=== PATIENT | female | born 1965 | race Caucasian/White ===

== ENCOUNTER → 2018-07-27 | Outpatient (CLI) | payer OTHER ==
[2018-07-28 14:07] LABS: HPV 16 Negative (Negative); HPV 18 Negative (Negative); HPV OTHER HR TYPES Negative (Negative)
== END | disposition home or self-care (01) ==
LOC: LAB 09:29 → LAB SHORT 09:29
PROVIDERS: Nurse Practitioner Obstetrics & Gynecology
DX: Z01.419 Encounter for gynecological examination (general) (routine) without abnormal findings (principal)
CPT/HCPCS: 87624; G0123

== ENCOUNTER 2018-09-13 07:15 | Day surgery (SDC) | payer OTHER ==
[~2018-09-13] VITALS: Ht 157.5 cm; Wt 66.5 kg
[2018-09-13] MEDS ORDERED: Phentermine HCl15 MG (07:46)
== END 2018-09-13 09:15 | disposition home or self-care (01) ==
LOC: ORSCSDS 07:15
PROVIDERS: Internal Medicine Gastroenterology
PROC: 0DBE8ZX Excision of Large Intestine, Via Natural or Artificial Opening Endoscopic, Diagnostic (ICD-10-PCS; principal; 2018-09-13 08:30)
PROC: 0DBH8ZX Excision of Cecum, Via Natural or Artificial Opening Endoscopic, Diagnostic (ICD-10-PCS; principal; 2018-09-13 08:30)
DX: Z12.11 Encounter for screening for malignant neoplasm of colon (principal); Z86.19 Personal history of other infectious and parasitic diseases; K52.9 Noninfective gastroenteritis and colitis, unspecified; K64.8 Other hemorrhoids
CPT/HCPCS: 88305; J2405; J2704; J7120

== ENCOUNTER → 2024-06-17 | Outpatient (CLI) | payer SELFPAY ==
[~2024-06-17] MED LIST: CEFP200 PO; DOXY100 PO; Metformin HCl750 MG PO; Phentermine HCl15 MG; VISBIOME 112.51 EACH PO
== END ==
LOC: LAB 08:37 → LAB SHORT 08:37
DX: N39.0 Urinary tract infection, site not specified (principal)
CPT/HCPCS: 87077; 87086; 87186

== ENCOUNTER 2024-06-19 10:28 | Inpatient (IN) | payer BC ==
[~2024-06-19] VITALS: Ht 160 cm; Wt 67.1 kg
[~2024-06-19 10:28] MED LIST changes: -CEFP200 PO; -DOXY100 PO; -Metformin HCl750 MG PO; -VISBIOME 112.51 EACH PO
[2024-06-19 11:56] LABS: Hemoglobin 16.7 g/dL (11.5-16.0); Mean Corpuscular HGB 28.6 pg (26.0-34.0); Mean Corpuscular HGB Conc 34.8 g/dL (31.5-36.5); Mean Corpuscular Volume 82 fL (80-100); RDW Coefficient Variation 13.8 % (11.7-14.2); RDW Standard Deviation 41.3 fL (35.1-46.3); Red Blood Cell Count 5.83 M/mm3 (3.80-5.20); White Blood Cell Count 20.65 K/mm3 (4.00-11.30)
[2024-06-19 12:03] LABS: Bun/Creatinine Ratio 30.9 (12.0-20.0); Calcium, Blood 8.4 mg/dL (8.5-10.1); Creatinine, Blood 1.23 mg/dL (0.40-1.00); Potassium, Blood 4.6 mmol/L (3.5-5.5)
[2024-06-19 12:13] LABS: Platelet Count 35 K/mm3 (150-400)
[2024-06-19 12:17] LABS: BAND PERCENT MAN 10 % (0-8); BASOPHILS PERCENT MAN 0 % (0-2); EOSINOPHILS PERCENT MAN 0 % (0-6); LYMPHOCYTES % ATYPICAL MANUAL 1 % (0-0); LYMPHOCYTES ABSOLUTE MAN 3.71 K/mm3 (0.84-5.20); LYMPHOCYTES PERCENT MAN 17 % (21-46); METAMYELOCYTE ABSOLUTE MAN 0.61 K/mm3 (0.00-0.00); METAMYELOCYTE PERCENT MAN 3 % (0-0); MONOCYTES ABSOLUTE MAN 1.23 K/mm3 (0.16-1.47); MONOCYTES PERCENT MAN 6 % (4-13); MYELOCYTE ABSOLUTE MAN 0.41 K/mm3 (0.00-0.00); MYELOCYTE PERCENT MAN 2 % (0-0); NEUTROPHILS ABSOLUTE MAN 14.04 K/mm3 (1.96-9.15); PLASMA CELL ABSOLUTE MAN 0.61 K/mm3 (0.00-0.00); PLASMA CELLS PERCENT MAN 3 % (0-0); SEG NEUTROPHILS PERCENT MAN 58 % (41-73); TOTAL CELLS COUNTED 100
[2024-06-19] MEDS ORDERED: CefTRIAXone Sodium 1,000 MG in NS 100 ML IV ONE (15:15)
[2024-06-19] MEDS ORDERED: Metformin HCl750 MG PO (16:34)
[2024-06-19] MEDS ORDERED: CEFP200 PO (16:35)
[2024-06-19] MEDS ORDERED: Lactated Ringer's 1,000 ML IV SCH (17:15)
[2024-06-19] MEDS ORDERED: Azithromycin 500 MG in NS 250 ML IV SCH (17:20)
[2024-06-19] MEDS ORDERED: Acetaminophen 325 MG TABLET PO PRN (17:45)
[2024-06-19] MEDS ORDERED: Ondansetron HCl 2 MG / ML 2ML Vial IV ONE (18:05)
[2024-06-19 19:56] LABS: Source, Urine Clean Catch
[2024-06-19 20:07] LABS: Appearance, Urine Hazy (Clear); Bilirubin, Urine Neg (Neg); Blood, Urine 2+ (Neg); Color, Urine Yellow (P-Yellow); Glucose Qualitative, Urine Neg (Neg); Ketones, Urine Neg (Neg); Leukocyte Esterase, Urine Neg (Neg); Nitrite, Urine Neg (Neg); Protein, Urine 3+ (Neg); Urobilinogen, Urine NORM (Normal)
[2024-06-19 20:17] LABS: Bacteria Few /hpf; Mucus Light (0-Heavy); Red Blood Cells, Urine 0-2 /hpf (0-2); Squamous Epithelial Cells Mod /hpf (Few); White Blood Cells, Urine 0-2 /hpf (0-5)
[2024-06-19 20:18] LABS: Amorphous Heavy (0-Heavy); Granular Casts 25-50 /lpf (0)
[2024-06-19 20:18] LABS: Bun/Creatinine Ratio 32.1 (12.0-20.0); Calcium, Blood 7.7 mg/dL (8.5-10.1); Creatinine, Blood 1.4 mg/dL (0.40-1.00); Potassium, Blood 4.3 mmol/L (3.5-5.5)
[2024-06-19 20:39] VITALS: BP 122/97
--- NOTE | 2024-06-19 20:51 | NUR ---
PT ARRIVED TO UNIT AT APPROXIMATELY 2000, SETTLED AND ORIENTED TO ROOM, ALERT AND ORIENTED X4, ON 4L NC, RRR AND UNLABORED, VSS, AFEBRILE, DENIES PAIN, NO SKIN ISSUES PRESENT. ABLE TO AMBULATE FROM STRETCHER TO BED. NO CONCERNS AT THIS TIME, IVF INFUSING, CALL LIGHT WITHIN REACH. LIGHTS OFF, PT ASLEEP AND RESTING COMFORTABLY.
[2024-06-19] MEDS ORDERED: Sennosides 8.6 MG Tab PO SCH (21:00)
--- NOTE | 2024-06-20 00:29 | NUR ---
NG TUBE SUCCESSFULLY INSERTED AT BEDSIDE WITH 2ND RN, XRAY ORDER PLACED AND IMAGING CALLED. AWAITING XRAY CONFIRMATION.
[2024-06-20 00:30] VITALS: BP 118/87
[2024-06-20 04:34] LABS: Hemoglobin 14.8 g/dL (11.5-16.0); Mean Corpuscular HGB 28.2 pg (26.0-34.0); Mean Corpuscular HGB Conc 34.4 g/dL (31.5-36.5); Mean Corpuscular Volume 82 fL (80-100); RDW Standard Deviation 41.8 fL (35.1-46.3); Red Blood Cell Count 5.24 M/mm3 (3.80-5.20); White Blood Cell Count 11.68 K/mm3 (4.00-11.30)
[2024-06-20 04:52] LABS: Platelet Count 28 K/mm3 (150-400)
[2024-06-20 05:02] LABS: BAND PERCENT MAN 10 % (0-8); BASOPHILS PERCENT MAN 0 % (0-2); EOSINOPHILS ABSOLUTE MAN 0.11 K/mm3 (0.00-0.68); EOSINOPHILS PERCENT MAN 1 % (0-6); LYMPHOCYTES % ATYPICAL MANUAL 2 % (0-0); LYMPHOCYTES ABSOLUTE MAN 2.21 K/mm3 (0.84-5.20); LYMPHOCYTES PERCENT MAN 17 % (21-46); MONOCYTES ABSOLUTE MAN 1.16 K/mm3 (0.16-1.47); MONOCYTES PERCENT MAN 10 % (4-13); NEUTROPHILS ABSOLUTE MAN 8.17 K/mm3 (1.96-9.15); SEG NEUTROPHILS PERCENT MAN 60 % (41-73); TOTAL CELLS COUNTED 100
--- NOTE | 2024-06-20 05:11 | NUR ---
pt arrived to unit in stable condition, able to ambulate well from stretcher to bed. no concerns at this time, vss, rrr and unlabored, on 4l nc overnight to maintain o2 sats >92%. denies sob cp or physical pain. IVF infusing per md order, tolerating well.
[2024-06-20 05:47] LABS: Albumin, Blood 2.3 g/dL (3.4-5.0); Albumin/Globulin Ratio 0.6 (0.8-1.8); Bilirubin, Total 0.4 mg/dL (0.1-1.0); Bun/Creatinine Ratio 34.1 (12.0-20.0); Calcium, Blood 7.8 mg/dL (8.5-10.1); Creatinine, Blood 1.23 mg/dL (0.40-1.00); Globulin, Blood 3.9 g/dL (2.2-4.0); Potassium, Blood 4.5 mmol/L (3.5-5.5); Total Protein, Blood 6.2 g/dL (6.4-8.2)
[2024-06-20] MEDS ORDERED: NS 1,000 ML IV SCH (07:00)
[2024-06-20 07:33] VITALS: BP 114/80
[2024-06-20] MEDS ORDERED: CefTRIAXone Sodium 2,000 MG in NS 100 ML IV SCH (09:00)
--- NOTE | 2024-06-20 10:44 | NUR ---
am note this rn assumed care at 0700. vital signs stable. tele sinus rhythm 70-80s. spo2 >95% on 4l nc, and this rn titrated down to 2.5 l nc with spo2 >90%. patient currently on 1l nc with spo2 >90%. the plan is to continue titrating until patient is back on room air, which is patient baseline. patient is alert and oriented x4. neuro is intact. independent in adls in the room. patient uses call light appropriately and is able to make needs known. patient denies pain, chest pain/pressure or shortness of breath. see shift assessment for further detials. Md Borja in to see patient and discussed downgrading to medical status without tele. patient switched to medical status no tele. plan to continue with abxs and patient agrees to this plan.
[2024-06-20 11:45] VITALS: BP 121/89
[2024-06-20 13:05] LABS: Influenza A, PCR NEGATIVE (NEGATIVE); Influenza B, PCR NEGATIVE (NEGATIVE); Resp Syncytial Virus, PCR NEGATIVE (NEGATIVE); SARS-Cov-2 (COVID-19) PCR, MMC NEGATIVE (NEGATIVE)
[2024-06-20 14:32] LABS: Prothrombin Time Results 10.7 Sec (9.7-11.5)
[2024-06-20 16:05] VITALS: BP 114/81
--- NOTE | 2024-06-20 17:26 | NUR ---
MD CALLED: THIS RN CALLED MD PRIMARY WAS ON BREAK TO ASK FOR CLARIFICATION ON A LAB. LAB CALLED REGARDING PATIENT TO KNOW IF THE MD WANTED TO CHECK FOR MALARIA. MD STATED SHE WOULD NOT AND LAB WAS TOLD.
--- NOTE | 2024-06-20 17:45 | NUR ---
shift summary patient vitals remain stable. medical status no tele. patient has been on room air to 1.5l nc throughout the day. no acute changes throughout the shift. plan of care remains up to date
[2024-06-20 20:04] VITALS: BP 126/86
[2024-06-21 03:54] VITALS: BP 106/61
[2024-06-21 04:29] LABS: Hematocrit 36.4 % (33.0-51.0); Hemoglobin 12.5 g/dL (11.5-16.0); Mean Corpuscular HGB 28.9 pg (26.0-34.0); Mean Corpuscular HGB Conc 34.3 g/dL (31.5-36.5); Mean Corpuscular Volume 84 fL (80-100); RDW Coefficient Variation 14.3 % (11.7-14.2); RDW Standard Deviation 44.6 fL (35.1-46.3); Red Blood Cell Count 4.33 M/mm3 (3.80-5.20); White Blood Cell Count 9.38 K/mm3 (4.00-11.30)
[2024-06-21 04:37] LABS: Mean Platelet Volume 11.5 fL (9.1-12.4); Platelet Count 23 K/mm3 (150-400)
[2024-06-21 04:46] LABS: Albumin/Globulin Ratio 0.6 (0.8-1.8); Bilirubin, Total 0.4 mg/dL (0.1-1.0); Bun/Creatinine Ratio 34.2 (12.0-20.0); Calcium, Blood 7.9 mg/dL (8.5-10.1); Creatinine, Blood 0.76 mg/dL (0.40-1.00); Globulin, Blood 3.5 g/dL (2.2-4.0); Potassium, Blood 4.2 mmol/L (3.5-5.5); Total Protein, Blood 5.5 g/dL (6.4-8.2)
[2024-06-21 04:53] LABS: BAND PERCENT MAN 7 % (0-8); BASOPHILS PERCENT MAN 0 % (0-2); EOSINOPHILS ABSOLUTE MAN 0.37 K/mm3 (0.00-0.68); EOSINOPHILS PERCENT MAN 4 % (0-6); LYMPHOCYTES % ATYPICAL MANUAL 1 % (0-0); LYMPHOCYTES PERCENT MAN 15 % (21-46); METAMYELOCYTE ABSOLUTE MAN 0.09 K/mm3 (0.00-0.00); METAMYELOCYTE PERCENT MAN 1 % (0-0); MONOCYTES ABSOLUTE MAN 0.93 K/mm3 (0.16-1.47); MONOCYTES PERCENT MAN 10 % (4-13); NEUTROPHILS ABSOLUTE MAN 6.47 K/mm3 (1.96-9.15); SEG NEUTROPHILS PERCENT MAN 62 % (41-73); TOTAL CELLS COUNTED 100
--- NOTE | 2024-06-21 05:18 | NUR ---
PT REMAINS ALERT AND ORIENTED X4 THROUGHOUT SHIFT, VSS, RRR AND UNLABORED, DENIES C/P AND SOB, ALONG WITH ANY PHYSICAL PAIN. NO CONCERNS AT THIS TIME, PT ABLE TO REST ON AND OFF THROUGHOUT SHIFT. NO CONCERNS AT THIS TIME, MAIN CONCERN IS BEING UNABLE TO WEAN PT OFF O2. CURRENTLY ON 1.5L OF OXYGEN VIA NC TO MAINTAIN ADEQUATE O2 SATS. SATTING IN MID 90S THROUGHOUT SHIFT WHILE ASLEEP. WILL RELAY TO ONCOMING SHIFT ABOUT ISSUES WEANING O2. OTHERWISE PLEASANT PT.
[2024-06-21 07:54] VITALS: BP 114/77
[2024-06-21 09:19] LABS: BASOPHILS PERCENT AUTO 1 % (0-2); EOSINOPHILS ABSOLUTE AUTO 0.18 K/mm3 (0.00-0.68); EOSINOPHILS PERCENT AUTO 2 % (0-6); Hematocrit 33.7 % (33.0-51.0); Hemoglobin 12.1 g/dL (11.5-16.0); Mean Corpuscular HGB 29.4 pg (26.0-34.0); Mean Corpuscular HGB Conc 35.9 g/dL (31.5-36.5); Mean Corpuscular Volume 82 fL (80-100); RDW Coefficient Variation 14.6 % (11.7-14.2); RDW Standard Deviation 43.9 fL (35.1-46.3); Red Blood Cell Count 4.12 M/mm3 (3.80-5.20)
[2024-06-21 09:21] LABS: Albumin/Globulin Ratio 0.6 (0.8-1.8); Bilirubin, Total 0.4 mg/dL (0.1-1.0); Bun/Creatinine Ratio 31.3 (12.0-20.0); Calcium, Blood 7.8 mg/dL (8.5-10.1); Creatinine, Blood 0.7 mg/dL (0.40-1.00); Globulin, Blood 3.6 g/dL (2.2-4.0); Potassium, Blood 3.8 mmol/L (3.5-5.5); Total Protein, Blood 5.6 g/dL (6.4-8.2)
[2024-06-21 09:22] LABS: IMMATURE GRAN ABSOLUTE AUTO 0.32 K/mm3 (0.00-0.10); IMMATURE GRAN PERCENT AUTO 4 % (0-1); LYMPHOCYTES ABSOLUTE AUTO 1.55 K/mm3 (0.84-5.20); LYMPHOCYTES PERCENT AUTO 18 % (21-46); MONOCYTES ABSOLUTE AUTO 0.44 K/mm3 (0.16-1.47); MONOCYTES PERCENT AUTO 5 % (4-13); NEUTROPHILS ABSOLUTE AUTO 6.11 K/mm3 (1.96-9.15); NEUTROPHILS PERCENT AUTO 70 % (41-73)
[2024-06-21 09:41] LABS: International Normalized Ratio 0.96; Prothrombin Time Results 10.3 Sec (9.7-11.5)
[2024-06-21 10:35] LABS: Mean Platelet Volume 13.3 fL (9.1-12.4); Platelet Count 49 K/mm3 (150-400)
[2024-06-21 15:11] VITALS: BP 125/80
--- NOTE | 2024-06-21 17:01 | NUR ---
SHIFT SUMMARY NO ACUTE CHANGES THIS SHIFT. VSS. PT A&OX4. SP02>90% TITRATED TO RA. DENIES SOB. NO TELEMETRY. DENIES PAIN. UP TO BATHROOM INDEPENDENTLY. REPORTS LOOSE STOOL. VOIDING OK. AMBULATED AROUND HALLWAY SBA. REPORTS FEELING LESS FATIGUE THAN PRIOR DAY. ABX INFUSED PER EMAR. VISITORS IN ROOM T/O DAY. RESTING IN ROOM, CALL LIGHT IN REACH.
[2024-06-21 19:45] VITALS: BP 105/67
[2024-06-21 22:26] VITALS: BP 128/87
--- NOTE | 2024-06-22 05:11 | NUR ---
NOC SUMMARY- PT TRANSFERED TO ROOM 208. PT ARRIVED IN NO DISTRESS. PT INDEPENDANT IN ROOM. PT SPO2 >90% ON RA. PT ONLY ISSUE HAS BEEN SOME LOOSE STOOLS. PT REPORTS STOOLS BEGAN YESTERDAY. PT DENIES ANY BLOOD IN STOOL. PT RESTING COMFORTABLY. CALL LIGHT IN REACH.
[2024-06-22 05:26] LABS: Hematocrit 31.7 % (33.0-51.0); Hemoglobin 10.8 g/dL (11.5-16.0); Mean Corpuscular HGB 29.1 pg (26.0-34.0); Mean Corpuscular HGB Conc 34.1 g/dL (31.5-36.5); Mean Corpuscular Volume 85 fL (80-100); RDW Coefficient Variation 14.8 % (11.7-14.2); RDW Standard Deviation 45.8 fL (35.1-46.3); Red Blood Cell Count 3.71 M/mm3 (3.80-5.20); White Blood Cell Count 7.07 K/mm3 (4.00-11.30)
[2024-06-22 05:31] LABS: Mean Platelet Volume 12.4 fL (9.1-12.4)
[2024-06-22 05:32] LABS: Platelet Count 76 K/mm3 (150-400)
[2024-06-22 05:43] LABS: Albumin, Blood 2.1 g/dL (3.4-5.0); Albumin/Globulin Ratio 0.6 (0.8-1.8); Bilirubin, Total 0.4 mg/dL (0.1-1.0); Bun/Creatinine Ratio 24.4 (12.0-20.0); Calcium, Blood 8.1 mg/dL (8.5-10.1); Creatinine, Blood 0.62 mg/dL (0.40-1.00); Globulin, Blood 3.5 g/dL (2.2-4.0); Potassium, Blood 3.8 mmol/L (3.5-5.5); Total Protein, Blood 5.6 g/dL (6.4-8.2)
[2024-06-22 05:47] LABS: BAND PERCENT MAN 4 % (0-8); BASOPHILS PERCENT MAN 0 % (0-2); EOSINOPHILS ABSOLUTE MAN 0.42 K/mm3 (0.00-0.68); EOSINOPHILS PERCENT MAN 6 % (0-6); International Normalized Ratio 0.91; LYMPHOCYTES PERCENT MAN 27 % (21-46); MONOCYTES ABSOLUTE MAN 0.42 K/mm3 (0.16-1.47); MONOCYTES PERCENT MAN 6 % (4-13); NEUTROPHILS ABSOLUTE MAN 4.31 K/mm3 (1.96-9.15); Prothrombin Time Results 9.8 Sec (9.7-11.5); SEG NEUTROPHILS PERCENT MAN 57 % (41-73); TOTAL CELLS COUNTED 100
[2024-06-22 06:30] VITALS: BP 136/94
[2024-06-22 07:03] VITALS: BP 138/90
[2024-06-22] MEDS ORDERED: VISBIOME 112.51 EACH PO (11:45)
[2024-06-22] MEDS ORDERED: DOXY100 PO (11:46)
[2024-06-22 11:52] VITALS: BP 134/92
--- NOTE | 2024-06-22 12:22 | NUR ---
DISCHARGE: PACKET PRINTED AND PT EDUCATED. IV DC'D WNL, TIP INTACT. PT LEFT UNIT VIA WHEELCHAIR WITH STEVE PHILIPPE AT ABOUT 1200
== END 2024-06-22 12:12 | disposition home or self-care (01) | DRG 871 ==
LOC: ER 10:28 → ERHOLD 16:18 → PCU 16:18 → SURS 06-21 22:10
PROVIDERS: Emergency Medicine; Family Medicine; Internal Medicine; ADMIT Hospitalist
DX: A41.9 Sepsis, unspecified organism (principal); J18.9 Pneumonia, unspecified organism; J96.01 Acute respiratory failure with hypoxia; E87.1 Hypo-osmolality and hyponatremia; E87.21 Acute metabolic acidosis; R65.20 Severe sepsis without septic shock; E86.1 Hypovolemia; R79.1 Abnormal coagulation profile; D69.59 Other secondary thrombocytopenia
CPT/HCPCS: 0241U; 36415; 71045; 71260; 76770; 80048; 80053; 81001; 82607; 82746; 83605; 85025; 85060; 85362; 85379; 85384; 85610; 85730; 86850; 86900; 86901; 87040; 94762; 96365; 99284-25; A9270; J0456; J0696; J2405; J7030; J7050; J7120; Q9967

== ENCOUNTER → 2024-06-19 | Outpatient (CLI) | payer SELFPAY ==
[2024-06-19 10:02] LABS: BASOPHILS ABSOLUTE AUTO 0.29 K/mm3 (0.00-0.23); BASOPHILS PERCENT AUTO 2 % (0-2); Hemoglobin 17.5 g/dL (11.5-16.0); Mean Corpuscular HGB 28.5 pg (26.0-34.0); Mean Corpuscular HGB Conc 34.3 g/dL (31.5-36.5); Mean Corpuscular Volume 83 fL (80-100); RDW Coefficient Variation 13.9 % (11.7-14.2); RDW Standard Deviation 41.8 fL (35.1-46.3); Red Blood Cell Count 6.14 M/mm3 (3.80-5.20); White Blood Cell Count 19.97 K/mm3 (4.00-11.30)
[2024-06-19 10:04] LABS: EOSINOPHILS ABSOLUTE AUTO 0.07 K/mm3 (0.00-0.68); EOSINOPHILS PERCENT AUTO 0 % (0-6); IMMATURE GRAN ABSOLUTE AUTO 1.59 K/mm3 (0.00-0.10); IMMATURE GRAN PERCENT AUTO 8 % (0-1); LYMPHOCYTES ABSOLUTE AUTO 5.82 K/mm3 (0.84-5.20); LYMPHOCYTES PERCENT AUTO 29 % (21-46); MONOCYTES ABSOLUTE AUTO 1.23 K/mm3 (0.16-1.47); MONOCYTES PERCENT AUTO 6 % (4-13); NEUTROPHILS ABSOLUTE AUTO 10.97 K/mm3 (1.96-9.15); NEUTROPHILS PERCENT AUTO 55 % (41-73)
[2024-06-19 10:09] LABS: Albumin, Blood 2.8 g/dL (3.4-5.0); Albumin/Globulin Ratio 0.6 (0.8-1.8); Bilirubin, Total 0.6 mg/dL (0.1-1.0); Bun/Creatinine Ratio 20.2 (12.0-20.0); Calcium, Blood 9.1 mg/dL (8.5-10.1); Creatinine, Blood 1.68 mg/dL (0.40-1.00); Globulin, Blood 4.7 g/dL (2.2-4.0); Potassium, Blood 4.4 mmol/L (3.5-5.5); Total Protein, Blood 7.5 g/dL (6.4-8.2)
[2024-06-19 11:07] LABS: BAND PERCENT MAN 12 % (0-8); BASOPHILS PERCENT MAN 0 % (0-2); EOSINOPHILS ABSOLUTE MAN 0.19 K/mm3 (0.00-0.68); EOSINOPHILS PERCENT MAN 1 % (0-6); LYMPHOCYTES % ATYPICAL MANUAL 16 % (0-0); LYMPHOCYTES ABSOLUTE MAN 6.98 K/mm3 (0.84-5.20); LYMPHOCYTES PERCENT MAN 19 % (21-46); MONOCYTES ABSOLUTE MAN 0.79 K/mm3 (0.16-1.47); MONOCYTES PERCENT MAN 4 % (4-13); NEUTROPHILS ABSOLUTE MAN 11.38 K/mm3 (1.96-9.15); PLASMA CELL ABSOLUTE MAN 0.59 K/mm3 (0.00-0.00); PLASMA CELLS PERCENT MAN 3 % (0-0); SEG NEUTROPHILS PERCENT MAN 45 % (41-73); TOTAL CELLS COUNTED 100
[2024-06-19 11:12] LABS: Platelet Count 26 K/mm3 (150-400)
== END | disposition home or self-care (01) ==
LOC: LAB 09:53 → LAB SHORT 09:53
PROVIDERS: Physician Assistant Medical
DX: R53.83 Other fatigue (principal)
CPT/HCPCS: 80053; 83690; 85025